=== PATIENT | female | born 1990 ===

== ENCOUNTER → 2017-03-17 | Outpatient (CLI) | payer BC ==
[2017-03-17 15:34] LABS: Source, Urine Clean Catch
[2017-03-17 15:54] LABS: Bacteria Not Seen /hpf; Red Blood Cells, Urine Not Seen /hpf (0-2); Squamous Epithelial Cells Few /hpf (Few); White Blood Cells, Urine Rare /hpf (0-5)
== END | disposition home or self-care (01) ==
LOC: LAB EV 15:32
PROVIDERS: Physician Assistant
DX: R35.0 Frequency of micturition (principal)
CPT/HCPCS: 81015

== ENCOUNTER → 2017-03-22 | Outpatient (CLI) | payer BC ==
[2017-03-23 03:32] LABS: Source VAG/CERVIX
== END | disposition home or self-care (01) ==
LOC: LAB 10:08
PROVIDERS: Nurse Practitioner Obstetrics & Gynecology
DX: Z01.419 Encounter for gynecological examination (general) (routine) without abnormal findings (principal)
CPT/HCPCS: G0123